=== PATIENT | female | born 1970 | race Caucasian/White ===

== ENCOUNTER 2017-12-27 08:25 | Emergency (ER) | payer BC, OTHER ==
[~2017-12-27 08:25] MED LIST: KET10 PO; METH4TAB57 PO; ONDA4SOL10 PO; ONDA4TAB PO; RANI-320 PO; SUMA1TAB3 PO; TOP100 PO; VILA40TA PO
[2017-12-27] MEDS ORDERED: SUMA100T32 PO (08:42)
[2017-12-27] MEDS ORDERED: DULO60CA7 PO (08:42)
[2017-12-27] MEDS ORDERED: CARB-82 PO (08:42)
[2017-12-27] MEDS ORDERED: ONDANSETRON 4 MG/2 ML VIAL IVP ONE ×2 (08:50→09:20)
[2017-12-27] MEDS ORDERED: NS(*) 0.9% 1000 ML BAG 1,000 ML IV ONE (08:50)
[2017-12-27] MEDS ORDERED: SUMAtriptan SUCC 6MG/0.5ML VL SUBQ ONE (08:50)
--- NOTE | 2017-12-27 09:09 | ER Report ---
History and Physical Time Seen By MD: 08:35 Hx. of Stated Complaint: MIGRAINE SINCE 0300 HPI/ROS CHIEF COMPLAINT: headache HISTORY OF PRESENT ILLNESS: Pt awoke with flanagan similar to prior migraines at 0300 ; attempted to take home meds (zofran and imitrex) x 2 but vomited multiple times and does not feel she was able to keep down meds. C/o photophobia, flanagan that begins at back of head, has been constant, not wol. Recently moved to [place], returned to [place] and feels the elevation exacerbated her symptoms. Denies cp, sob, ap, uti symptoms. Does note some LE edema that began when she returned to [place]. REVIEW OF SYSTEMS: Constitutional: No fever, no chills. Eyes: No discharge. ENT: No sore throat. Cardiovascular: No chest pain, no palpitations. Respiratory: No cough, no shortness of breath. Gastrointestinal: No abdominal pain; continued nausea, wretching Genitourinary: No hematuria. Musculoskeletal: No back pain. Skin: No rashes; edema as above Neurological: as above; no weakness, numbness Allergies: Coded Allergies: alprazolam (Verified Allergy, Mild, 12/27/17) amoxicillin (Verified Allergy, Mild, 12/27/17) clavulanic acid (Verified Allergy, Mild, 12/27/17) Home Meds Active Scripts Ondansetron (ZOFRAN ODT) 4 Mg Tab.rapdis, 4 MG PO Q4-6H Y for NAUSEA/VOMITING, # 20 TAB 0 Refills Prov:VICENTE LAKHANI MD 06/25/15 Reported Medications Sumatriptan Succinate (IMITREX) 100 Mg Tablet, 100 MG PO ONCE 12/27/17 Duloxetine HCl (Duloxetine HCl) 60 Mg Capsule.dr, 1 CAP PO DAILY 12/27/17 Carbamazepine (TEGRETOL) 200 Mg Tablet, 400 MG PO BID 12/27/17 Discontinued Reported Medications Vilazodone Hydrochloride (VIIBRYD) 40 Mg Tablet, 80 MG PO QDAY 06/25/15 Ondansetron Hcl (ZOFRAN) 4 Mg/5 Ml Solution, 4 MG PO Q12H 03/14/13 Sumatriptan Succ/Naproxen Sod (TREXIMET 85-500 MG TABLET) 1 Each Tablet, 1 EACH PO 03/14/13 Discontinued Scripts Ketorolac Tromethamine (KETOROLAC TROMETHAMINE) 10 Mg Tab, 10 MG PO Q6H Y for PAIN/HEADACHE, #12 TAB 0 Refills Prov:VICENTE LAKHANI MD 06/25/15 Past Medical/Surgical History migraine flanagan, seizure Reviewed Nurses Notes: Yes Hx Smoking: No Smoking Status: Former Smoker Exposure to Second Hand Smoke?: No Constitutional Vital Sign - Last 24 Hours 12/27/17 08:33 Pulse 84 Resp 18 B/P (MAP) 149/87 Pulse Ox 94 O2 Delivery Room Air Physical Exam General Appearance: The patient is alert, has no immediate need for airway protection and no signs of toxicity; pt is curled up in dark room, wretching, uncomfortable, c/o flanagan Eyes: Pupils equal and round no pallor or injection. ENT, Mouth: Mucous membranes are moist. Respiratory: There are no retractions, lungs are clear to auscultation. Cardiovascular: Regular rate and rhythm. no m/r/g Gastrointestinal: Abdomen is soft and non tender, no masses, bowel sounds normal. Neurological: alert, oriented x 3, steele, 5/5 ms, nl sensation, nl speech Skin: Warm and dry, no rashes. Musculoskeletal: Neck is supple non tender. Extremities are nontender, nonswollen and have full range of motion. [DIFFERENTIAL DIAGNOSIS: After history and physical exam differential diagnosis was considered for] headache including but not limited to subarachnoid hemorrhage, migraine headache, tension headache and infectious causes such as meningitis, pharyngitis and sinusitis. Medical Decision Making ED Course/Re-evaluation ED Course Pt presents with symptoms c/w typical though severe migraine for her. No neuro deficits or atypical features. Gradually improves throughout ed course, ultimately feels comfortble with pain improved to < 3 and wishes to go home and rest. Ambulates wtihout difficulty on d/c. Considered but doubt mening, sah, ich , cva or other emergent etiology. Decision to Disposition Date: Dec 27, 2017 Decision to Disposition Time: 11:12 Depart Departure Latest Vital Signs Vital Signs Date Time Temp Pulse Resp B/P (MAP) Pulse Ox O2 Delivery O2 Flow Rate FiO2 12/27/17 08:33 84 18 149/87 94 Room Air Impression: Primary Impression: Migraine Condition: Improved Disposition: HOME OR SELF-CARE Patient Instructions: Acute Headache (ED) Problem Qualifiers Primary Impression: Migraine Migraine type: unspecified Status migrainosus presence: without status migrainosus Intractability: not intractable Qualified Codes: G43.909 - Migraine, unspecified, not intractable, without status migrainosus SIOMARA MALIK MD Dec 27, 2017 09:09
[2017-12-27] MEDS ORDERED: MAGNESIUM SUL* 2 GM/50 ML IVPB 50 ML IVPB ONE (09:20)
[2017-12-27] MEDS ORDERED: FAMOTIDINE(*) 20MG/50ML PREMIX 50 ML IVPB ONE (09:35)
[2017-12-27] MEDS ORDERED: MAG HYD/AL HYD/SIMETH 30ML UDC PO ONE (10:20)
[2017-12-27] MEDS ORDERED: KETOROLAC 15 MG/ML VIAL IVP ONE (10:20)
[2017-12-27 10:45] VITALS: BP 146/99
== END 2017-12-27 11:21 | disposition home or self-care (01) ==
LOC: ER 08:27
DX: G43.909 Migraine, unspecified, not intractable, without status migrainosus (principal); Z87.891 Personal history of nicotine dependence
CPT/HCPCS: 96361; 96365; 96367; 96372; 96375; 96376; 99283; J1885; J2405; J3030; J3475; J3490; J7030